=== PATIENT | male | born 1970 | race Caucasian/White ===

== ENCOUNTER 2018-11-02 16:03 | Emergency (ER) | payer BC ==
[2018-11-02] MEDS ORDERED: diphenhydrAMINE 50 MG/ML SDV IVPUSH ONE (16:07)
[2018-11-02] MEDS ORDERED: methylPREDNISolone Sodium Succinate 125 MG/2 ML SDV IVPUSH ONE (16:07)
[2018-11-02] MEDS ORDERED: Sodium Chloride 0.9% 1,000 ML IV ONE (16:07)
--- NOTE | 2018-11-02 16:09 | EDM.PDOC ---
ED HPI GENERAL MEDICAL PROBLEM - General Chief Complaint: General Stated Complaint: FLU SYMPTOMS Time Seen by Provider: 11/02/18 16:09 Source of Information: Reports: Patient History Limitations: Reports: No Limitations - History of Present Illness INITIAL COMMENTS - FREE TEXT/NARRATIVE: HISTORY AND PHYSICAL: History of present illness: Patient is a 47-year-old male who presents to the ED today with concerns of dyspnea, lip swelling, feeling flushed, and shaky. Patient states just prior to arrival to the ED he was working on a ceiling fan that he was going to install in his house. He states he opened a box and was getting all the pieces out when all of a sudden he felt a sudden onset of his stated complaints. He immediately came to the ED. Patient states he's never had these symptoms prior. He denies any history of any allergies. He does not take any medications and denies any health history. Prior to this incident, he states he fell per his normal self without any complaints. He denies any new exposures or new foods. Denies any known allergies. Review of systems: As per history of present illness and below otherwise all systems reviewed and negative. Past medical history: As per history of present illness and as reviewed below otherwise noncontributory. Surgical history: As per history of present illness and as reviewed below otherwise noncontributory. Social history: See social history for further information Family history: As per history of present illness and as reviewed below otherwise noncontributory. Physical exam: General: Patient is alert, oriented, in no acute distress. He is sitting on exam table but is slightly shaky in his hands. HEENT: Atraumatic, normocephalic, pupils equal and reactive bilaterally, conjunctiva are erythematous bilaterally but negative for scleral icterus, mucous membranes moist, TMs normal bilaterally, throat clear, no posterior oropharynx/uvula swelling neck supple, nontender, trachea midline. No drooling or trismus noted. No meningeal signs. No hot potato voice noted. Lungs: Clear to auscultation, breath sounds equal bilaterally, chest nontender. Heart: S1S2, regular rate and rhythm without overt murmur Abdomen: Soft, nondistended, nontender. Negative for masses or hepatosplenomegaly. Negative for costovertebral tenderness. Pelvis: Stable nontender. Genitourinary: Deferred. Rectal: Deferred. Skin: Overall, patient's generalized skin is erythematous in color. Does have the start of urticaria on the underneath of his arms. Otherwise, intact, warm, dry. No lesions or rashes noted. Extremities: Atraumatic, negative for cords or calf pain. Neurovascular unremarkable. Neuro: Awake, alert, oriented. Cranial nerves II through XII unremarkable. Cerebellum unremarkable. Motor and sensory unremarkable throughout. Exam nonfocal. Notes: On initial exam, patient was showing signs of an acute allergic reaction. No facial or lip swelling noted. On initial presentation he was tachycardic, hypertensive, and oxygen was 92%. He was not in acute respiratory distress at this time. He did have urticaria under his arms and generalized erythema appearance of the skin. After starting fluids, Benadryl, and Solu-Medrol, patient's symptoms improved dramatically and quickly. His skin had returned to within normal limits. In the swelling of his lips had greatly reduced. Labs were ordered at this time to assess for other potential causes of his symptoms other than allergic reaction. We continued to reassess patient throughout his time here in the ED. His vitals have improved following the initiation of medical treatment. Patient does have elevated liver markers on labs today. Patient was notified of this finding and told to follow up with his primary care provider regarding these. Otherwise, labs remain unremarkable. Chest x-ray shows no acute cardiopulmonary process. Supportive care measures were reviewed and discussed. Since patient did experience sensation of swelling of the lips and throat, discussed with patient and his the benefit of admission. Discussed admission for observation with the patient, however, him and his feel well enough to go home and decline admission at this time. They voices understanding of the risk versus benefits of admission versus going home and are agreeable to plan of care. The deny any further questions or concerns at this time. Diagnostics: cbc, cmp, ekg, cxr Therapeutics: Benadryl, Solu-Medrol, normal saline, Famotidine Prescription: Medrol dose pack, Epipen Impression: 1. Allergic reaction 2. Angioedema 3. Transaminitis Plan: 1. Avoid contact with an known triggers. 2. Please routinely take Benadryl (H1 Marycarmen) and Pepcid (H2 Marycarmen) over the next several days. H1 and H2 antihistamines in combination are more effective in alleviating symptoms. 3. Fill your prescription for the EpiPen and keep available. In the event you use your EpiPen in the future, please seek medical attention immediately after injection. 4. Follow up with your primary care provider in the next 1-2 days regarding your visit as well as elevated liver enzymes. Return to the ED as needed and as discussed. Definitive disposition and diagnosis as appropriate pending reevaluation and review of above. - Related Data Allergies Allergy/AdvReac Type Severity Reaction Status Date / Time No Known Allergies Allergy Verified 11/02/18 16:15 Home Meds: Home Meds . [No Known Home Meds] 05/14/14 [History] Past Medical History Gastrointestinal History: Reports: None - Past Surgical History GI Surgical History: Reports: Hernia Repair/Other Social & Family History - Family History Family Medical History: Noncontributory ED ROS GENERAL - Review of Systems Review Of Systems: ROS reveals no pertinent complaints other than HPI. ED EXAM, GENERAL - Physical Exam Exam: See Below (see dictation) Course - Vital Signs Last Recorded V/S: Last Vital Signs Temp 96.4 F 11/02/18 16:12 Pulse 94 11/02/18 17:45 Resp 18 11/02/18 17:45 BP 139/93 H 11/02/18 17:45 Pulse Ox 94 L 11/02/18 17:45 - Orders/Labs/Meds Orders: Active Orders 24 hr Category Date Time Status EKG Documentation Completion [RC] STAT Care 11/02/18 16:29 Active Chest 1V Frontal [CR] Stat Exams 11/02/18 16:29 Taken Labs: Laboratory Tests 11/02/18 11/02/18 Range/Units 16:38 16:38 WBC 7.42 (4.0-11.0) K/uL RBC 5.33 (4.50-5.90) M/uL Hgb 18.5 H (13.0-17.0) g/dL Hct 51.5 H (38.0-50.0) % MCV 96.6 (80.0-98.0) fL MCH 34.7 H (27.0-32.0) pg MCHC 35.9 (31.0-37.0) g/dL RDW Std Deviation 46.3 (28.0-62.0) fl RDW Coeff of Sanjiv 13 (11.0-15.0) % Plt Count 167 (150-400) K/uL MPV 10.10 (7.40-12.00) fL Neut % (Auto) 55.1 (48.0-80.0) % Lymph % (Auto) 36.0 (16.0-40.0) % Ida % (Auto) 7.8 (0.0-15.0) % Eos % (Auto) 0.8 (0.0-7.0) % Baso % (Auto) 0.3 (0.0-1.5) % Neut # (Auto) 4.1 (1.4-5.7) K/uL Lymph # (Auto) 2.7 H (0.6-2.4) K/uL Ida # (Auto) 0.6 (0.0-0.8) K/uL Eos # (Auto) 0.1 (0.0-0.7) K/uL Baso # (Auto) 0.0 (0.0-0.1) K/uL Nucleated RBC % 0.0 /100WBC Nucleated RBCs # 0 K/uL Sodium 137 (136-148) mmol/L Potassium 4.1 (3.5-5.1) mmol/L Chloride 101 (98-107) mmol/L Carbon Dioxide 27.4 (21.0-32.0) mmol/L BUN 16 (7.0-18.0) mg/dL Creatinine 1.2 (0.8-1.3) mg/dL Est Cr Clr Drug Dosing 76.10 mL/min Estimated GFR (MDRD) > 60.0 ml/min Glucose 134 H (74-106) mg/dL Calcium 9.1 (8.5-10.1) mg/dL Total Bilirubin 0.7 (0.2-1.0) mg/dL AST 80 H (15-37) IU/L ALT 104 H (14-63) IU/L Alkaline Phosphatase 87 (46-116) U/L Total Protein 7.0 (6.4-8.2) g/dL Albumin 3.6 (3.4-5.0) g/dL Globulin 3.4 (2.6-4.0) g/dL Albumin/Globulin Ratio 1.1 (0.9-1.6) Meds: Medications Discontinued Medications Generic Name Dose Route Start Last Admin Trade Name Freq PRN Reason Stop Dose Admin Diphenhydramine HCl 50 mg 11/02/18 16:07 11/02/18 16:25 Benadryl IVPUSH 11/02/18 16:08 50 mg ONETIME ONE Administration Famotidine 20 mg 11/02/18 16:32 11/02/18 16:48 Pepcid IVPUSH 11/02/18 16:33 20 mg ONETIME ONE Administration Sodium Chloride 1,000 mls @ 999 mls/hr 11/02/18 16:07 11/02/18 16:26 Normal Saline IV 11/02/18 17:07 999 mls/hr STAT ONE Administration Methylprednisolone Sodium Succinate 125 mg 11/02/18 16:07 11/02/18 16:25 Solu-Medrol IVPUSH 11/02/18 16:08 125 mg ONETIME ONE Administration Departure - Departure Time of Disposition: 17:50 Disposition: Home, Self-Care 01 Clinical Impression: Allergic reaction Qualifiers: Encounter type: initial encounter Qualified Code(s): T78.40XA - Allergy, unspecified, initial encounter - Discharge Information Instructions: Anaphylactic Reaction, Adult Referrals: PCP,None [Primary Care Provider] - Forms: ED Department Discharge Additional Instructions: The following information is given to patients seen in the emergency department who are being discharged to home. This information is to outline your options for follow-up care. We provide all patients seen in our emergency department with a follow-up referral. The need for follow-up, as well as the timing and circumstances, are variable depending upon the specifics of your emergency department visit. If you don't have a primary care physician on staff, we will provide you with a referral. We always advise you to contact your personal physician following an emergency department visit to inform them of the circumstance of the visit and for follow-up with them and/or the need for any referrals to a consulting specialist. The emergency department will also refer you to a specialist when appropriate. This referral assures that you have the opportunity for follow-up care with a specialist. All of these measure are taken in an effort to provide you with optimal care, which includes your follow-up. Under all circumstances we always encourage you to contact your private physician who remains a resource for coordinating your care. When calling for follow-up care, please make the office aware that this follow-up is from your recent emergency room visit. If for any reason you are refused follow-up, please contact the [facility] at and asked to speak to the emergency department charge nurse. [facility] [address] [place] [address] [facility] [address] [place] [id number] 1. Avoid contact with an known triggers. 2. Please routinely take Benadryl (H1 Marycarmen) and Pepcid (H2 Marycarmen) over the next several days. H1 and H2 antihistamines in combination are more effective in alleviating symptoms. 3. Fill your prescription for the EpiPen and keep available. In the event you use your EpiPen in the future, please seek medical attention immediately after injection. 4. Follow up with your primary care provider in the next 1-2 days regarding your visit as well as elevated liver enzymes. Return to the ED as needed and as discussed. - My Orders Last 24 Hours: My Active Orders 11/02/18 16:29 EKG Documentation Completion [RC] STAT Chest 1V Frontal [CR] Stat - Assessment/Plan Last 24 Hours: My Active Orders 11/02/18 16:29 EKG Documentation Completion [RC] STAT Chest 1V Frontal [CR] Stat
[2018-11-02] MEDS ORDERED: Famotidine 20 MG/2 ML SDV IVPUSH ONE (16:32)
[2018-11-02 17:27] LABS: CHLORIDE,CL 101 mmol/L (98-107); SODIUM,NA 137 mmol/L (136-148)
--- NOTE | 2018-11-02 17:52 | CR ---
INDICATION: Pain, short of breath. Technique: Single-view. COMPARISON: None. FINDINGS: Heart size upper normal. Slight nonspecific interstitial prominence. Pulmonary vessels are within normal limits. No focal alveolar opacity. No evidence of pneumothorax. Upper abdomen unremarkable. IMPRESSION: No acute abnormality identified. Heart size upper normal. Dictated by Al Chapin MD @ Nov 02 2018 5:49PM Signed by Dr. Al Chapin @ Nov 02 2018 5:51PM
[2018-11-02 18:13] VITALS: BP 147/98
== END 2018-11-02 18:11 | disposition home or self-care (01) ==
LOC: MW.ED 16:03
DX: T78.40XA Allergy, unspecified, initial encounter (principal)
CPT/HCPCS: 36415; 71045; 80053; 85025; 93005; 96361; 96374; 96375; 99284; J1200; J2930; J3490; J7040